=== PATIENT | female | born 1940 | race Two or more races ===

== ENCOUNTER → 2016-11-18 | Outpatient (CLI) | payer MEDICARE, MEDICAID ==
[~2016-11-18] MED LIST: AMLO10TA2 PO; ASPI-231 PO; ATOR20TA50 PO; CARV6.2551 PO; FLUT50SP13; GLIP-116 PO; INSUINJ32 SC; LOSA100T27 PO; METF-312 PO; NITR0.2D12 TD; NITR0.4S29 SL; SITA100T7 PO; [UNRECOGNIZED DRUG - CODE] PO
[2016-11-18 08:12] LABS: Basophils # (auto) 0 uL; Basophils % (auto) 0.4 % (0.0-2.0); Eosinophils # (auto) 0.4 uL; Eosinophils % (auto) 6.6 % (0.0-7.0); Hematocrit 38.3 % (36.0-46.0); Hemoglobin 12.2 g/dL (12.2-16.2); Lymphocytes # (auto) 1.6 uL; Lymphocytes % (auto) 24.6 % (10.0-50.0); Mean Corpuscular Hemoglobin 27.5 pg (28.0-32.0); Mean Corpuscular Hgb Conc. 31.9 g/dL (32.0-36.0); Mean Corpuscular Volume 86.2 fL (80.0-100.0); Mean Platelet Volume 8.1 fL (7.4-10.4); Monocytes # (auto) 0.3 uL; Monocytes % (auto) 4.8 % (0.0-12.0); Neutrophils # (auto) 4.1 uL; Neutrophils % (auto) 63.6 % (37.0-80.0); Platelet Count (auto) 253 10^3/uL (140-450); Red Cell Distribution Width 14.1 % (11.6-16.0); White Blood Cell 6.5 10^3/uL (4.4-10.8)
[2016-11-18 08:23] LABS: Urine Bilirubin Negative (Negative); Urine Blood Negative /uL (Negative); Urine Color Yellow (Yellow); Urine Glucose Normal (Normal); Urine Ketone Negative (Negative); Urine Nitrite Negative (Negative); Urine RBC 1 /hpf (0 - 4); Urine Squamous Epithelial Cell FEW /hpf (<5); Urine Urobilinogen Normal (Negative); Urine pH 5.5 (5.0-8.0)
[2016-11-18 08:41] LABS: Albumin 3.5 g/dL (3.4-5.0); BUN/Creatinine Ratio 17.1; Bilirubin, Total 0.5 mg/dL (0.2-1.0); Calcium 8.7 mg/dL (8.5-10.1); Potassium 4.6 mmol/L (3.5-5.1)
== END | disposition home or self-care (01) ==
LOC: LAB 07:37
PROVIDERS: ATTEND Internal Medicine
DX: Z00.00 Encounter for general adult medical examination without abnormal findings (principal); I10 Essential (primary) hypertension; E55.9 Vitamin D deficiency, unspecified; E11.9 Type 2 diabetes mellitus without complications
CPT/HCPCS: 36415; 80053; 80061; 81001; 82043; 82306; 83036; 85025

== ENCOUNTER → 2017-05-22 | Outpatient (CLI) | payer MEDICARE, MEDICAID ==
[~2017-05-22] MED LIST changes: -METF-312 PO; +METF-370 PO
== END | disposition home or self-care (01) ==
LOC: LAB 16:16
PROVIDERS: ATTEND Internal Medicine
DX: R10.9 Unspecified abdominal pain (principal)
CPT/HCPCS: 36415; 82565; 84520

== ENCOUNTER → 2017-05-28 | Outpatient (CLI) | payer MEDICARE, MEDICAID | END | disposition home or self-care (01) | LOC: LAB 09:44 | PROVIDERS: ATTEND Internal Medicine | DX: R10.9 Unspecified abdominal pain (principal) | CPT/HCPCS: 82270 ==

== ENCOUNTER 2017-09-21 05:54 | Emergency (ER) | payer MEDICARE, MEDICAID ==
[~2017-09-21] VITALS: Ht 144.8 cm; Wt 72.1 kg
[2017-09-21 06:51] LABS: Basophils # (auto) 0.1 uL; Basophils % (auto) 0.9 % (0.0-2.0); Eosinophils # (auto) 0.4 uL; Eosinophils % (auto) 5.9 % (0.0-7.0); Hemoglobin 13.6 g/dL (12.2-16.2); Lymphocytes # (auto) 1.4 uL; Lymphocytes % (auto) 18.9 % (10.0-50.0); Mean Corpuscular Hemoglobin 28.9 pg (28.0-32.0); Mean Corpuscular Hgb Conc. 33.3 g/dL (32.0-36.0); Mean Corpuscular Volume 86.8 fL (80.0-100.0); Mean Platelet Volume 7.8 fL (6.9-10.8); Monocytes # (auto) 0.5 uL; Monocytes % (auto) 6.4 % (0.0-12.0); Neutrophils # (auto) 4.9 uL; Neutrophils % (auto) 67.9 % (37.0-80.0); Platelet Count (auto) 227 10^3/uL (140-450); Red Cell Distribution Width 14.3 % (11.8-14.3); White Blood Cell 7.2 10^3/uL (4.4-10.8)
[2017-09-21] MEDS ORDERED: SODIUM CHLORIDE 0.9% 1,000 ML IV ONE ×2 (07:02)
[2017-09-21 07:09] LABS: Albumin 3.6 g/dL (3.4-5.0); Anion Gap 6 (5-15); Aspartate Aminotransferase 10 U/L (15-37); BUN/Creatinine Ratio 19.8; Blood Urea Nitrogen 16 mg/dL (7-18); Calcium 8.7 mg/dL (8.5-10.1); Carbon Dioxide 25 mmol/L (21-32); Chloride 108 mmol/L (98-107); GFR African American 88 mL/min; GFR Non-African American 73 mL/min; Glucose 207 mg/dL (74-106); Potassium 4.2 mmol/L (3.5-5.1); Sodium 139 mmol/L (136-145)
[2017-09-21 07:14] LABS: Alkaline Phosphatase 85 U/L (45-117); Bilirubin, Total 0.5 mg/dL (0.2-1.0); Total Protein 7.3 g/dL (6.4-8.2)
[2017-09-21 07:47] LABS: INR 0.94 (0.9-1.15); Partial Thromboplastin Time 25.1 sec (22.64-33.71); Prothrombin Time 10.2 sec (9.37-12.3)
[2017-09-21 08:17] VITALS: BP 176/65
[2017-09-21] MEDS ORDERED: HYDROcodone-ACET 5/325MG TAB PO ONE (08:30)
[2017-09-21 08:48] LABS: Urine Bilirubin Negative (Negative); Urine Blood TRACE /uL (Negative); Urine Color Yellow (Yellow); Urine Glucose Normal (Normal); Urine Ketone Negative (Negative); Urine Mucus FEW (None Seen); Urine Nitrite Negative (Negative); Urine RBC 1 /hpf (0 - 4); Urine Squamous Epithelial Cell MOD /hpf (<5); Urine Urobilinogen Normal (Negative); Urine pH 5.5 (5.0-8.0)
== END 2017-09-21 08:48 | disposition home or self-care (01) ==
LOC: ER 05:56
DX: E11.65 Type 2 diabetes mellitus with hyperglycemia (principal); K80.20 Calculus of gallbladder without cholecystitis without obstruction; N20.0 Calculus of kidney; I25.2 Old myocardial infarction; Z95.1 Presence of aortocoronary bypass graft; I25.810 Atherosclerosis of coronary artery bypass graft(s) without angina pectoris; E78.5 Hyperlipidemia, unspecified; I10 Essential (primary) hypertension; F17.210 Nicotine dependence, cigarettes, uncomplicated; Z86.73 Personal history of transient ischemic attack (TIA), and cerebral infarction without residual deficits; Z90.49 Acquired absence of other specified parts of digestive tract; Z90.710 Acquired absence of both cervix and uterus; Z88.8 Allergy status to other drugs, medicaments and biological substances; Z88.6 Allergy status to analgesic agent
CPT/HCPCS: 36415; 71020; 74176; 80053; 81001; 82962; 84484; 85025; 85610; 85730; 93005

== ENCOUNTER 2017-12-01 08:25 | Inpatient (IN) | payer MEDICARE, MEDICAID ==
[~2017-12-01] VITALS: Ht 144.8 cm; Wt 71.0 kg
[2017-12-01] MEDS ORDERED: ALBUTEROL SULF 2.5 MG/0.5ML(0.5%) NEB SOLN NEB ONE ×2 (09:30→12:00)
[2017-12-01] MEDS ORDERED: PIPERACILLIN-TAZOB 3.375GM 50 ML IV ONE (09:30)
[2017-12-01] MEDS ORDERED: IPRATROPIUM BROM 0.5 MG/2.5ML INH SOL NEB ONE ×2 (09:30→12:00)
[2017-12-01 09:45] LABS: Basophils # (auto) 0.2 uL; Basophils % (auto) 1.3 % (0.0-2.0); Eosinophils # (auto) 0.1 uL; Eosinophils % (auto) 0.9 % (0.0-7.0); Hematocrit 41.4 % (36.0-46.0); Hemoglobin 13.7 g/dL (12.2-16.2); Lymphocytes # (auto) 1.1 uL; Lymphocytes % (auto) 8.2 % (10.0-50.0); Mean Corpuscular Hemoglobin 28.5 pg (28.0-32.0); Mean Corpuscular Hgb Conc. 33.1 g/dL (32.0-36.0); Monocytes # (auto) 0.6 uL; Monocytes % (auto) 4.4 % (0.0-12.0); Neutrophils # (auto) 11.1 uL; Neutrophils % (auto) 85.2 % (37.0-80.0); Platelet Count (auto) 231 10^3/uL (140-450); Red Blood Cells 4.81 10^6/uL (4.0-5.20); Red Cell Distribution Width 14.4 % (11.8-14.3); White Blood Cell 13.1 10^3/uL (4.4-10.8)
[2017-12-01 10:01] LABS: Alanine Aminotransferase 17 U/L (13-56); Albumin 3.7 g/dL (3.4-5.0); Alkaline Phosphatase 101 U/L (45-117); Anion Gap 9 (5-15); Aspartate Aminotransferase 8 U/L (15-37); BUN/Creatinine Ratio 14.3; Bilirubin, Total 0.6 mg/dL (0.2-1.0); Blood Urea Nitrogen 13 mg/dL (7-18); Calcium 8.8 mg/dL (8.5-10.1); Carbon Dioxide 24 mmol/L (21-32); Chloride 105 mmol/L (98-107); GFR African American 77 mL/min; GFR Non-African American 64 mL/min; Glucose 286 mg/dL (74-106); Potassium 4.1 mmol/L (3.5-5.1); Sodium 138 mmol/L (136-145); Total Protein 7.7 g/dL (6.4-8.2)
[2017-12-01 10:11] LABS: INR 0.92 (0.9-1.15); Partial Thromboplastin Time 24.6 sec (22.64-33.71)
[2017-12-01] MEDS ORDERED: AZITHROMYCIN 500MG/ 250ML 250 ML IV ONE (10:45)
[2017-12-01] MEDS ORDERED: DEXTROSE (50%) 50ML SYRG IV PRN (12:00)
[2017-12-01] MEDS ORDERED: TEMAZEPAM 15 MG CAP PO PRN (12:15)
[2017-12-01] MEDS ORDERED: NITROGLYCERIN 0.4 MG SL TAB SL PRN (12:15)
[2017-12-01] MEDS ORDERED: ONDANSETRON HCL 4 MG/2 ML VIAL IV PRN (12:15)
[2017-12-01] MEDS ORDERED: MORPHINE SULFATE 4 MG/ML SYR/VIAL IV PRN ×2 (12:15)
[2017-12-01] MEDS ORDERED: DOCUSATE SOD 100 MG CAP PO PRN (12:15)
[2017-12-01] MEDS ORDERED: cefTRIAXone 1GM/10ml IVPUSH 10 ML IV ONE (12:15)
[2017-12-01] MEDS: SODIUM CHLOR 0.9% PF (SALINE LOCK) 10ML VIAL IV SCH ×2 (14:02→22:00)
[2017-12-01] MEDS: ALBUTEROL SULF 2.5 MG/0.5ML(0.5%) NEB SOLN NEB SCH ×3 (14:22→22:31)
[2017-12-01] MEDS: IPRATROPIUM BROM 0.5 MG/2.5ML INH SOL NEB SCH ×3 (14:22→22:31)
[2017-12-01] MEDS ORDERED: CARVEDILOL 12.5 MG TAB PO ONE (16:00)
[2017-12-01] MEDS ORDERED: LOSARTAN POTASSIUM 50 MG TAB PO ONE (16:00)
[2017-12-01] MEDS ORDERED: amLODIPine BESYLATE 5 MG TAB PO ONE (16:00)
[2017-12-01] MEDS: ACCU-CHEK COMFORT CURVE STRIP VI SCH ×2 (17:00→22:19)
[2017-12-01 17:25] VITALS: BP 139/49
[2017-12-01] MEDS: InsuLIN REG 1unit/0.01ml Soln (100units/ml) SC SCH ×2 (18:10→22:11)
[2017-12-01] MEDS: glipiZIDE 5 MG TAB PO SCH (18:10)
[2017-12-01 18:26] VITALS: BP 139/49
[2017-12-01] MEDS ORDERED: CLOP75TA28 PO (18:55)
[2017-12-01] MEDS ORDERED: ALBU1AER4 IN (18:55)
[2017-12-01] MEDS: ATORVASTATIN 20 MG TAB PO SCH (22:11)
[2017-12-01] MEDS: FAMOTIDINE 20 MG TAB PO SCH (22:12)
[2017-12-01] MEDS: carBAMazepine 200 MG TAB PO SCH (22:12)
[2017-12-01] MEDS: CARVEDILOL 12.5 MG TAB PO SCH (22:12)
[2017-12-01 22:34] VITALS: BP_SYST 136; BP_DIAS 62; BP_DIAS 92
[2017-12-02] MEDS: ALBUTEROL SULF 2.5 MG/0.5ML(0.5%) NEB SOLN NEB SCH ×6 (02:52→22:23)
[2017-12-02] MEDS: IPRATROPIUM BROM 0.5 MG/2.5ML INH SOL NEB SCH ×6 (02:52→22:23)
[2017-12-02 05:07] LABS: Urine WBC None Seen /hpf (0 - 5)
[2017-12-02 05:24] LABS: Urine Bacteria NONE SEEN /hpf (None Seen); Urine Blood Negative /uL (Negative); Urine Specific Gravity 1.006 (1.001-1.035)
[2017-12-02 05:57] VITALS: BP 121/62
[2017-12-02] MEDS: SODIUM CHLOR 0.9% PF (SALINE LOCK) 10ML VIAL IV SCH ×3 (06:00→22:00)
[2017-12-02] MEDS: glipiZIDE 5 MG TAB PO SCH ×2 (06:48→18:16)
[2017-12-02] MEDS: ACCU-CHEK COMFORT CURVE STRIP VI SCH ×4 (06:48→22:00)
[2017-12-02] MEDS: InsuLIN REG 1unit/0.01ml Soln (100units/ml) SC SCH ×4 (06:48→22:00)
[2017-12-02] MEDS: INSULIN LANTUS (GLARGINE) 1 /0.01ml (100units/ml) SC SCH (06:48)
[2017-12-02 07:29] LABS: Basophils # (auto) 0 uL; Basophils % (auto) 0.7 % (0.0-2.0); Eosinophils # (auto) 0.4 uL; Eosinophils % (auto) 5.5 % (0.0-7.0); Hematocrit 36.9 % (36.0-46.0); Hemoglobin 12.4 g/dL (12.2-16.2); Lymphocytes # (auto) 1.3 uL; Lymphocytes % (auto) 20.1 % (10.0-50.0); Mean Corpuscular Hemoglobin 28.8 pg (28.0-32.0); Mean Corpuscular Hgb Conc. 33.5 g/dL (32.0-36.0); Mean Corpuscular Volume 85.8 fL (80.0-100.0); Monocytes # (auto) 0.5 uL; Monocytes % (auto) 7.3 % (0.0-12.0); Neutrophils # (auto) 4.3 uL; Neutrophils % (auto) 66.4 % (37.0-80.0); Nucleated Red Blood Cells % 0.2 %; Platelet Count (auto) 194 10^3/uL (140-450); Red Cell Distribution Width 14.3 % (11.8-14.3); White Blood Cell 6.4 10^3/uL (4.4-10.8)
[2017-12-02 07:46] LABS: Albumin 3.2 g/dL (3.4-5.0); BUN/Creatinine Ratio 15.8; Calcium 8.1 mg/dL (8.5-10.1); Potassium 3.7 mmol/L (3.5-5.1)
[2017-12-02 07:49] LABS: Bilirubin, Total 0.5 mg/dL (0.2-1.0); Total Protein 6.4 g/dL (6.4-8.2)
[2017-12-02] MEDS: cefTRIAXone 1GM/10ml IVPUSH 10 ML IV SCH (08:26)
[2017-12-02 08:34] VITALS: BP 140/57
[2017-12-02] MEDS: FAMOTIDINE 20 MG TAB PO SCH ×2 (09:20→23:31)
[2017-12-02] MEDS: CLOPIDOGREL BISULFATE 75 MG TAB PO SCH (09:21)
[2017-12-02] MEDS: amLODIPine BESYLATE 5 MG TAB PO SCH (09:21)
[2017-12-02] MEDS: MULTIPLE VITAMIN TAB PO SCH (09:21)
[2017-12-02] MEDS: LOSARTAN POTASSIUM 50 MG TAB PO SCH (09:22)
[2017-12-02] MEDS: CARVEDILOL 12.5 MG TAB PO SCH ×2 (09:23→23:33)
[2017-12-02] MEDS ORDERED: AZITHROMYCIN 500MG/ 250ML 250 ML IV SCH (10:00)
[2017-12-02] MEDS ORDERED: JANUVIA 100MG PO SCH (10:00)
[2017-12-02 13:00] VITALS: BP 131/53
[2017-12-02 16:47] VITALS: BP 144/58
[2017-12-02 22:12] VITALS: BP 142/73
[2017-12-02] MEDS: ATORVASTATIN 20 MG TAB PO SCH (23:31)
[2017-12-02] MEDS: carBAMazepine 200 MG TAB PO SCH (23:31)
[2017-12-03] MEDS: IPRATROPIUM BROM 0.5 MG/2.5ML INH SOL NEB SCH ×3 (02:34→09:48)
[2017-12-03] MEDS: ALBUTEROL SULF 2.5 MG/0.5ML(0.5%) NEB SOLN NEB SCH ×3 (02:34→09:48)
[2017-12-03 04:59] VITALS: BP 134/71
[2017-12-03] MEDS: SODIUM CHLOR 0.9% PF (SALINE LOCK) 10ML VIAL IV SCH (06:00)
[2017-12-03] MEDS: glipiZIDE 5 MG TAB PO SCH (06:57)
[2017-12-03] MEDS: INSULIN LANTUS (GLARGINE) 1 /0.01ml (100units/ml) SC SCH (06:58)
[2017-12-03] MEDS: InsuLIN REG 1unit/0.01ml Soln (100units/ml) SC SCH ×2 (06:58→11:30)
[2017-12-03] MEDS: ACCU-CHEK COMFORT CURVE STRIP VI SCH ×2 (06:58→13:24)
[2017-12-03 08:00] VITALS: BP 161/65
[2017-12-03] MEDS: cefTRIAXone 1GM/10ml IVPUSH 10 ML IV SCH (09:56)
[2017-12-03] MEDS ORDERED: HCTZ25T PO (10:30)
[2017-12-03] MEDS ORDERED: POTA10TA51 PO (10:30)
[2017-12-03] MEDS ORDERED: AMOX-263 PO (10:46)
[2017-12-03] MEDS: FAMOTIDINE 20 MG TAB PO SCH (10:54)
[2017-12-03] MEDS: CLOPIDOGREL BISULFATE 75 MG TAB PO SCH (10:54)
[2017-12-03] MEDS: MULTIPLE VITAMIN TAB PO SCH (10:55)
[2017-12-03] MEDS: amLODIPine BESYLATE 5 MG TAB PO SCH (10:55)
[2017-12-03] MEDS: CARVEDILOL 12.5 MG TAB PO SCH (10:56)
[2017-12-03] MEDS: LOSARTAN POTASSIUM 50 MG TAB PO SCH (10:56)
[2017-12-03 11:55] VITALS: BP 161/65
== END 2017-12-03 12:30 | disposition home or self-care (01) | DRG 189 ==
LOC: ER 08:25 → OVERFLOW 08:26 → EAST 17:20
PROVIDERS: ADMIT Internal Medicine; ATTEND Internal Medicine
DX: J96.00 Acute respiratory failure, unspecified whether with hypoxia or hypercapnia (principal); E10.21 Type 1 diabetes mellitus with diabetic nephropathy; J44.0 Chronic obstructive pulmonary disease with (acute) lower respiratory infection; J45.901 Unspecified asthma with (acute) exacerbation; J98.11 Atelectasis; E10.22 Type 1 diabetes mellitus with diabetic chronic kidney disease; N18.2 Chronic kidney disease, stage 2 (mild); J20.9 Acute bronchitis, unspecified; E66.9 Obesity, unspecified; I12.9 Hypertensive chronic kidney disease with stage 1 through stage 4 chronic kidney disease, or unspecified chronic kidney disease; E78.5 Hyperlipidemia, unspecified; F17.210 Nicotine dependence, cigarettes, uncomplicated; I25.10 Atherosclerotic heart disease of native coronary artery without angina pectoris; I25.2 Old myocardial infarction; Z82.49 Family history of ischemic heart disease and other diseases of the circulatory system; Z83.3 Family history of diabetes mellitus; Z85.43 Personal history of malignant neoplasm of ovary; Z86.73 Personal history of transient ischemic attack (TIA), and cerebral infarction without residual deficits; Z90.710 Acquired absence of both cervix and uterus; Z95.1 Presence of aortocoronary bypass graft; Z90.49 Acquired absence of other specified parts of digestive tract; Z90.89 Acquired absence of other organs; Z88.5 Allergy status to narcotic agent; Z88.8 Allergy status to other drugs, medicaments and biological substances; Z68.33 Body mass index [BMI] 33.0-33.9, adult
CPT/HCPCS: 36415; 71045; 71046; 80053; 81001; 82962; 83036; 83605; 83880; 84484; 85025; 85610; 85730; 87040; 87070; 87086; 87205; 93306; 94640; 96365; 96367; 96375; J1815; J2543

== ENCOUNTER → 2018-01-12 | Outpatient (CLI) | payer MEDICARE, MEDICAID ==
[~2018-01-12] VITALS: Ht 149.9 cm; Wt 73.5 kg
[~2018-01-12] MED LIST changes: +ADENOSINE 62 MG in GIVE UN-DILUTED 0 ML IV ONE; +ALBU1AER4 IN; +AMOX-263 PO; +CLOP75TA28 PO; +HCTZ25T PO; -NITR0.2D12 TD; +POTA10TA51 PO
[2018-01-12 10:51] VITALS: BP 175/61
== END | disposition home or self-care (01) ==
LOC: XY 09:03
PROVIDERS: ATTEND Internal Medicine
DX: I25.10 Atherosclerotic heart disease of native coronary artery without angina pectoris (principal); E10.22 Type 1 diabetes mellitus with diabetic chronic kidney disease; I12.9 Hypertensive chronic kidney disease with stage 1 through stage 4 chronic kidney disease, or unspecified chronic kidney disease; N18.2 Chronic kidney disease, stage 2 (mild); Z85.43 Personal history of malignant neoplasm of ovary
CPT/HCPCS: 78452; 93017; A9500; J0153

== ENCOUNTER 2018-06-25 05:03 | Emergency (ER) | payer MEDICARE, MEDICAID ==
[~2018-06-25] VITALS: Ht 144.8 cm; Wt 63.5 kg
[~2018-06-25 05:03] MED LIST changes: -ADENOSINE 62 MG in GIVE UN-DILUTED 0 ML IV ONE; +AMLO10TA12 PO; -AMLO10TA2 PO; +LOSA-49 PO; -LOSA100T27 PO
[2018-06-25 07:15] LABS: Basophils # (auto) 0.1 uL; Basophils % (auto) 0.7 % (0.0-2.0); Eosinophils # (auto) 0.4 uL; Eosinophils % (auto) 5.2 % (0.0-7.0); Hemoglobin 13.7 g/dL (12.2-16.2); Lymphocytes # (auto) 1.4 uL; Lymphocytes % (auto) 16.2 % (10.0-50.0); Mean Corpuscular Hemoglobin 30.3 pg (28.0-32.0); Mean Corpuscular Hgb Conc. 34.2 g/dL (32.0-36.0); Mean Corpuscular Volume 88.8 fL (80.0-100.0); Monocytes # (auto) 0.5 uL; Monocytes % (auto) 5.8 % (0.0-12.0); Neutrophils # (auto) 6.1 uL; Neutrophils % (auto) 72.1 % (37.0-80.0); Platelet Count (auto) 218 10^3/uL (140-450); Red Cell Distribution Width 13.9 % (11.8-14.3); White Blood Cell 8.5 10^3/uL (4.4-10.8)
[2018-06-25 07:31] LABS: Alanine Aminotransferase 17 U/L (13-56); Albumin 3.8 g/dL (3.4-5.0); Alkaline Phosphatase 79 U/L (45-117); Anion Gap 8 (5-15); Aspartate Aminotransferase 9 U/L (15-37); Bilirubin, Total 0.7 mg/dL (0.2-1.0); Blood Urea Nitrogen 23 mg/dL (7-18); Calcium 8.7 mg/dL (8.5-10.1); Carbon Dioxide 26 mmol/L (21-32); Chloride 104 mmol/L (98-107); GFR African American 59 mL/min; GFR Non-African American 49 mL/min; Glucose 297 mg/dL (74-106); Magnesium 2.3 mg/dL (1.6-2.6); Potassium 4.3 mmol/L (3.5-5.1); Sodium 138 mmol/L (136-145); Total Protein 7.5 g/dL (6.4-8.2)
[2018-06-25] MEDS ORDERED: MORPHINE SULFATE 4 MG/ML SYR/VIAL IV ONE (08:00)
[2018-06-25] MEDS ORDERED: ONDANSETRON HCL 4 MG/2 ML VIAL IV ONE (08:00)
[2018-06-25 10:24] VITALS: BP 152/57
== END 2018-06-25 10:29 | disposition home or self-care (01) ==
LOC: ER 05:09
DX: S29.011A Strain of muscle and tendon of front wall of thorax, initial encounter (principal); I25.709 Atherosclerosis of coronary artery bypass graft(s), unspecified, with unspecified angina pectoris; J44.9 Chronic obstructive pulmonary disease, unspecified; E11.9 Type 2 diabetes mellitus without complications; E78.5 Hyperlipidemia, unspecified; I11.0 Hypertensive heart disease with heart failure; I50.9 Heart failure, unspecified; Z88.6 Allergy status to analgesic agent; Z79.899 Other long term (current) drug therapy; Z79.82 Long term (current) use of aspirin; Z79.01 Long term (current) use of anticoagulants; Z79.4 Long term (current) use of insulin; Z86.73 Personal history of transient ischemic attack (TIA), and cerebral infarction without residual deficits; Z90.49 Acquired absence of other specified parts of digestive tract; Z95.1 Presence of aortocoronary bypass graft; Z90.710 Acquired absence of both cervix and uterus; Z98.61 Coronary angioplasty status; X50.0XXA Overexertion from strenuous movement or load, initial encounter; Y93.89 Activity, other specified; Y99.8 Other external cause status; Y92.89 Other specified places as the place of occurrence of the external cause
CPT/HCPCS: 36415; 71250; 80053; 83735; 83880; 84484; 85025; 96374; 96375; 99285; J2270; J2405; 93005

== ENCOUNTER → 2018-09-01 | Outpatient (CLI) | payer MEDICARE, MEDICAID ==
[2018-09-01 08:43] LABS: Basophils # (auto) 0.1 uL; Basophils % (auto) 0.9 % (0.0-2.0); Eosinophils # (auto) 0.4 uL; Eosinophils % (auto) 4.9 % (0.0-7.0); Hematocrit 40.8 % (36.0-46.0); Hemoglobin 13.6 g/dL (12.2-16.2); Lymphocytes # (auto) 1.9 uL; Lymphocytes % (auto) 24.2 % (10.0-50.0); Mean Corpuscular Hemoglobin 29.4 pg (28.0-32.0); Mean Corpuscular Hgb Conc. 33.3 g/dL (32.0-36.0); Mean Corpuscular Volume 88.3 fL (80.0-100.0); Monocytes # (auto) 0.4 uL; Monocytes % (auto) 5.6 % (0.0-12.0); Neutrophils # (auto) 4.9 uL; Neutrophils % (auto) 64.4 % (37.0-80.0); Platelet Count (auto) 228 10^3/uL (140-450); Red Blood Cells 4.62 10^6/uL (4.0-5.20); Red Cell Distribution Width 13.5 % (11.8-14.3); White Blood Cell 7.7 10^3/uL (4.4-10.8)
[2018-09-01 11:13] LABS: Potassium 4.2 mmol/L (3.5-5.1)
[2018-09-01 11:24] LABS: Albumin 3.8 g/dL (3.4-5.0); BUN/Creatinine Ratio 20.8; Bilirubin, Total 0.5 mg/dL (0.2-1.0); Calcium 9.2 mg/dL (8.5-10.1); Total Protein 7.3 g/dL (6.4-8.2)
== END | disposition home or self-care (01) ==
LOC: LAB 08:25
PROVIDERS: ATTEND Physician Assistant
DX: I11.0 Hypertensive heart disease with heart failure (principal); I50.9 Heart failure, unspecified; E11.29 Type 2 diabetes mellitus with other diabetic kidney complication; I25.10 Atherosclerotic heart disease of native coronary artery without angina pectoris; I25.119 Atherosclerotic heart disease of native coronary artery with unspecified angina pectoris; E78.5 Hyperlipidemia, unspecified; J44.9 Chronic obstructive pulmonary disease, unspecified
CPT/HCPCS: 36415; 80053; 80061; 82274; 85025

== ENCOUNTER → 2019-06-24 | Outpatient (CLI) | payer MEDICARE, MEDICAID ==
[~2019-06-24] MED LIST changes: -AMLO10TA12 PO; +AMLO10TA13 PO; -GLIP-116 PO; +GLIP10TA9 PO; +LOSA-39 PO; -LOSA-49 PO; +[UNRECOGNIZED DRUG - CODE] PO; -[UNRECOGNIZED DRUG - CODE] PO
[2019-06-24 11:57] LABS: Urine Bacteria NONE SEEN /hpf (None Seen); Urine Blood Negative /uL (Negative); Urine Mucus FEW (None Seen); Urine Specific Gravity 1.016 (1.001-1.035); Urine WBC 49 /hpf (0 - 5); Urine WBC Clumps PRESENT /hpf (None Seen)
== END | disposition home or self-care (01) ==
LOC: LAB 11:25
PROVIDERS: ATTEND Nurse Practitioner Family
DX: N39.0 Urinary tract infection, site not specified (principal)
CPT/HCPCS: 81001; 87086; 87088; 87186

== ENCOUNTER 2019-07-01 11:47 | Inpatient (IN) | payer MEDICARE, MEDICAID ==
[~2019-07-01] VITALS: Ht 144.8 cm; Wt 73.6 kg
[2019-07-01 12:43] LABS: Basophils # (auto) 0.1 uL; Basophils % (auto) 1.2 % (0.0-2.0); Eosinophils # (auto) 1.1 uL; Eosinophils % (auto) 12.4 % (0.0-7.0); Hematocrit 38.5 % (36.0-46.0); Hemoglobin 13.3 g/dL (12.2-16.2); Lymphocytes # (auto) 1.7 uL; Lymphocytes % (auto) 19.8 % (10.0-50.0); Mean Corpuscular Hgb Conc. 34.7 g/dL (32.0-36.0); Mean Corpuscular Volume 86.6 fL (80.0-100.0); Monocytes # (auto) 0.5 uL; Monocytes % (auto) 5.3 % (0.0-12.0); Neutrophils # (auto) 5.3 uL; Neutrophils % (auto) 61.3 % (37.0-80.0); Nucleated Red Blood Cells % 0.1 %; Platelet Count (auto) 217 10^3/uL (140-450); Red Blood Cells 4.44 10^6/uL (4.0-5.20); Red Cell Distribution Width 13.5 % (11.8-14.3); White Blood Cell 8.7 10^3/uL (4.4-10.8)
[2019-07-01] MEDS ORDERED: SODIUM CHLORIDE 0.9% 1,000 ML IV ONE (12:44)
[2019-07-01] MEDS ORDERED: cefTRIAXone 1GM/50ML D5W 50 ML IV ONE (12:45)
[2019-07-01 12:58] LABS: Albumin 3.7 g/dL (3.4-5.0); Calcium 9.2 mg/dL (8.5-10.1); Potassium 4.1 mmol/L (3.5-5.1)
[2019-07-01 13:01] LABS: BUN/Creatinine Ratio 19.3; Bilirubin, Total 0.5 mg/dL (0.2-1.0); Total Protein 7.4 g/dL (6.4-8.2)
[2019-07-01 14:05] LABS: INR 0.94 (0.9-1.15); Partial Thromboplastin Time 24.5 sec (23.64-32.05)
[2019-07-01] MEDS ORDERED: FUROSEMIDE 20 MG/2 ML VIAL IV ONE (16:30)
[2019-07-01] MEDS ORDERED: ONDANSETRON HCL 4 MG/2 ML VIAL IV PRN (16:30)
[2019-07-01] MEDS ORDERED: MORPHINE SULF INJ 2 MG/ML SYRINGE 1ML IV PRN (16:30)
[2019-07-01] MEDS ORDERED: NITROGLYCERIN 0.4 MG SL TAB SL PRN (16:30)
--- NOTE | 2019-07-01 17:45 | NUR ---
Telemetry admit from ER KASSIDY JONES admitted to Telemetry unit after SBAR received. Patient oriented to Summer Lama primary RN, unit, room, bed, and unit policies regarding patient care and visiting hours. Patient placed on bedside oxygen, weighed by bed scale and encouraged to call if they need something. All questions and concerns addressed, patient verbalized understanding. Instructed patient on POC, fall precautions and to call for assistance as needed. Patient verbalized understanding. Fall precautions in place with call light within reach. Will continue to monitor q1hr & PRN. Patient's daughter is at bedside.
--- NOTE | 2019-07-01 18:59 | NUR ---
Telemonitor #[id number] placed on patient Received telemonitor from ISIDRO Andre RN.
[2019-07-01 19:01] LABS: Urine Bacteria NONE SEEN /hpf (None Seen); Urine Blood Negative /uL (Negative); Urine Specific Gravity 1.015 (1.001-1.035); Urine WBC 1 /hpf (0 - 5)
--- NOTE | 2019-07-01 19:01 | NUR ---
Closing note patient resting in bed with even and unlabored respirations, no distress noted. Fall precautions in place with call light within reach. Visitor at bedside.
[2019-07-01] MEDS ORDERED: RANO500T2 PO (19:07)
[2019-07-01] MEDS: ALBUTEROL SULF 2.5 MG/0.5ML(0.5%) NEB SOLN NEB SCH (19:18)
[2019-07-01] MEDS: BUDESONIDE (INHALATION) 0.5 MG/2 ML NEB NEB SCH (19:18)
[2019-07-01] MEDS: IPRATROPIUM BROM 0.5 MG/2.5ML INH SOL NEB SCH (19:18)
--- NOTE | 2019-07-01 19:30 | NUR ---
Care endorsed to CLARIBEL Null.
--- NOTE | 2019-07-01 19:30 | NUR ---
OPENING NOTE REPORT RECEIVED FROM DAY SHIFT RN PATIENT IS A/OX4 RESTING IN BED. NO SOB OR DISTRESS NOTED. PATIENTS DAUGHTER AT BEDSIDE WITH PATIENT. POC DISCUSSED AND ALL QUESTIONS ANSWERED. WILL MONITOR Q1H PRN THROUGHOUT SHIFT. CALL LIGHT WITHIN REACH.
--- NOTE | 2019-07-01 20:30 | NUR ---
SCD'S PLACED ON BILATERAL LEGS PER MD ORDER
[2019-07-01] MEDS: CARVEDILOL 12.5 MG TAB PO SCH (21:59)
[2019-07-01 22:20] VITALS: BP 138/77
[2019-07-01 23:42] VITALS: BP 138/77
[2019-07-02 05:09] VITALS: BP 150/57
[2019-07-02] MEDS: IPRATROPIUM BROM 0.5 MG/2.5ML INH SOL NEB SCH ×3 (05:59→19:38)
[2019-07-02] MEDS: ALBUTEROL SULF 2.5 MG/0.5ML(0.5%) NEB SOLN NEB SCH ×3 (05:59→19:38)
[2019-07-02] MEDS: BUDESONIDE (INHALATION) 0.5 MG/2 ML NEB NEB SCH ×2 (05:59→19:38)
[2019-07-02 06:10] LABS: Basophils # (auto) 0.1 uL; Basophils % (auto) 1.3 % (0.0-2.0); Eosinophils # (auto) 0.9 uL; Eosinophils % (auto) 11.2 % (0.0-7.0); Hematocrit 36.7 % (36.0-46.0); Hemoglobin 12.9 g/dL (12.2-16.2); Lymphocytes # (auto) 1.6 uL; Lymphocytes % (auto) 19.4 % (10.0-50.0); Mean Corpuscular Hemoglobin 30.4 pg (28.0-32.0); Mean Corpuscular Hgb Conc. 35.1 g/dL (32.0-36.0); Mean Corpuscular Volume 86.5 fL (80.0-100.0); Monocytes # (auto) 0.5 uL; Neutrophils # (auto) 5.1 uL; Neutrophils % (auto) 62.1 % (37.0-80.0); Nucleated Red Blood Cells % 0.1 %; Platelet Count (auto) 217 10^3/uL (140-450); Red Blood Cells 4.24 10^6/uL (4.0-5.20); Red Cell Distribution Width 13.7 % (11.8-14.3); White Blood Cell 8.2 10^3/uL (4.4-10.8)
[2019-07-02 06:39] LABS: BUN/Creatinine Ratio 18.6; Calcium 8.4 mg/dL (8.5-10.1)
--- NOTE | 2019-07-02 06:56 | NUR ---
CLOSING PATIENT SLEEPING AT THIS TIME. VISIBLE RISE AND FALL OF CHEST. NO S/S OF SOB OR DISTRESS NOTED. CALL LIGHT WITHIN REACH. WILL ENDORSE CARE TO DAYSHIFT RN
--- NOTE | 2019-07-02 08:00 | NUR ---
RECEIVED REPORT FROM ZINA SANFORD.
--- NOTE | 2019-07-02 08:15 | NUR ---
Opening Shift Note Assumed care of patient, awake and alert. No S/S of distress/SOB or pain. Instructed on POC and to call for assist PRN, will continue to monitor. Bed locked in the lowest position. Bed rails up x2. Call light in reach. SCDs in place bilaterally.
[2019-07-02 09:00] VITALS: BP 137/73
--- NOTE | 2019-07-02 10:00 | NUR ---
FAMILY AT THE BEDSIDE AT THE BEDSIDE PROVIDING BED BATH TO PATIENT. ALL QUESTIONS AND CONCERNS ADDRESSED AT THIS TIME.
[2019-07-02] MEDS: FAMOTIDINE 20 MG TAB PO SCH (10:28)
[2019-07-02] MEDS: CLOPIDOGREL BISULFATE 75 MG TAB PO SCH (10:28)
[2019-07-02] MEDS: CARVEDILOL 12.5 MG TAB PO SCH ×2 (10:29→22:09)
[2019-07-02] MEDS: ASPirin-EC 81 mg tab PO SCH (10:29)
[2019-07-02] MEDS: FUROSEMIDE 20 MG/2 ML VIAL IV SCH (10:30)
[2019-07-02] MEDS: ATORVASTATIN 20 MG TAB PO SCH (10:30)
[2019-07-02 12:30] VITALS: BP 156/71
[2019-07-02 17:19] VITALS: BP 135/60
--- NOTE | 2019-07-02 17:52 | NUR ---
CHLORINE CELL TENDER AWARE CHLORINE CELL TENDER FLORES CLIFTON MADE AWARE THAT PATIENT HAS HISTORY OF DM. NEW ORDER RECEIVED. ORDER READ BACK AND VERIFIED.
[2019-07-02] MEDS ORDERED: InsuLIN REG 1unit/0.01ml Soln (100units/ml) SC ONE (18:00)
[2019-07-02] MEDS ORDERED: DEXTROSE (50%) 50ML SYRG IV PRN (18:00)
[2019-07-02] MEDS ORDERED: ACCU-CHEK COMFORT CURVE STRIP VI ONE (18:00)
--- NOTE | 2019-07-02 19:00 | NUR ---
Closing Note Patient is awake and alert. No S/S of distress/SOB or pain. Bed locked in the lowest position. Bed rails up x2. Call light in reach. Sitter at the bedside for safety. Endorsed care to night nurse.
[2019-07-02 20:00] VITALS: BP 129/72
[2019-07-02] MEDS: InsuLIN REG 1unit/0.01ml Soln (100units/ml) SC SCH (22:00)
[2019-07-02] MEDS: ACCU-CHEK COMFORT CURVE STRIP VI SCH (22:00)
[2019-07-02 23:25] VITALS: BP 140/68
[2019-07-03] MEDS: InsuLIN REG 1unit/0.01ml Soln (100units/ml) SC SCH ×4 (05:17→21:37)
[2019-07-03] MEDS: ACCU-CHEK COMFORT CURVE STRIP VI SCH ×4 (05:18→21:37)
[2019-07-03 05:34] VITALS: BP 125/72
[2019-07-03] MEDS: BUDESONIDE (INHALATION) 0.5 MG/2 ML NEB NEB SCH ×2 (06:01→18:58)
[2019-07-03] MEDS: ALBUTEROL SULF 2.5 MG/0.5ML(0.5%) NEB SOLN NEB SCH ×3 (06:01→18:58)
[2019-07-03] MEDS: IPRATROPIUM BROM 0.5 MG/2.5ML INH SOL NEB SCH ×3 (06:01→18:58)
--- NOTE | 2019-07-03 07:30 | NUR ---
Opening Shift Note RECEIVED REPORT FROM NOC RN. Assumed care of patient, awake and alert. PATIENT ON OXYGEN AT 3 LPM VIA NASAL CANNULA WITH no S/S of distress/SOB or pain. BED IN LOWEST, LOCKED POSITION WITH SIDERAILS UP x2 AND CALL LIGHT WITHIN REACH. Instructed on POC and to call for assist PRN, will continue to monitor for changes Q1hr and PRN.
[2019-07-03 07:46] LABS: Basophils # (auto) 0.1 uL; Basophils % (auto) 1.5 % (0.0-2.0); Eosinophils # (auto) 0.7 uL; Eosinophils % (auto) 10.3 % (0.0-7.0); Hematocrit 35.4 % (36.0-46.0); Hemoglobin 12.7 g/dL (12.2-16.2); Lymphocytes # (auto) 1.9 uL; Lymphocytes % (auto) 26.2 % (10.0-50.0); Mean Corpuscular Hemoglobin 30.6 pg (28.0-32.0); Mean Corpuscular Hgb Conc. 35.7 g/dL (32.0-36.0); Mean Corpuscular Volume 85.7 fL (80.0-100.0); Monocytes # (auto) 0.4 uL; Monocytes % (auto) 5.7 % (0.0-12.0); Neutrophils # (auto) 4.1 uL; Neutrophils % (auto) 56.3 % (37.0-80.0); Nucleated Red Blood Cells % 0.1 %; Platelet Count (auto) 206 10^3/uL (140-450); Red Blood Cells 4.14 10^6/uL (4.0-5.20); Red Cell Distribution Width 13.5 % (11.8-14.3); White Blood Cell 7.2 10^3/uL (4.4-10.8)
[2019-07-03 07:51] LABS: Anion Gap 8 (5-15); BUN/Creatinine Ratio 24.3; Blood Urea Nitrogen 25 mg/dL (7-18); Calcium 8.4 mg/dL (8.5-10.1); Carbon Dioxide 24 mmol/L (21-32); Chloride 106 mmol/L (98-107); GFR African American 67 mL/min; GFR Non-African American 55 mL/min; Glucose 210 mg/dL (74-106); Potassium 3.9 mmol/L (3.5-5.1); Sodium 138 mmol/L (136-145)
[2019-07-03 08:36] VITALS: BP 151/53
[2019-07-03] MEDS: ASPirin-EC 81 mg tab PO SCH (09:47)
[2019-07-03] MEDS: CLOPIDOGREL BISULFATE 75 MG TAB PO SCH (09:47)
[2019-07-03] MEDS: FUROSEMIDE 20 MG/2 ML VIAL IV SCH (09:47)
[2019-07-03] MEDS: CARVEDILOL 12.5 MG TAB PO SCH ×2 (09:48→21:37)
[2019-07-03] MEDS: ATORVASTATIN 20 MG TAB PO SCH (09:48)
[2019-07-03] MEDS: FAMOTIDINE 20 MG TAB PO SCH (09:48)
[2019-07-03 12:30] VITALS: BP 131/61
[2019-07-03 17:00] VITALS: BP 143/61
--- NOTE | 2019-07-03 20:00 | NUR ---
Opening Shift Note Received report from dayshift RN. Assumed care of patient, awake and alert. No S/S of distress/SOB or pain. Instructed on POC and to call for assist PRN, will continue to monitor for changes Q1hr and PRN. Bed lowered, call light within reach. Patient informed regarding procedure in the morning and patient being placed NPO. Patient aware and verbalized understanding.
[2019-07-03 22:12] VITALS: BP 151/75
[2019-07-04 05:32] VITALS: BP 149/70
[2019-07-04] MEDS: BUDESONIDE (INHALATION) 0.5 MG/2 ML NEB NEB SCH ×3 (05:55→22:17)
[2019-07-04] MEDS: IPRATROPIUM BROM 0.5 MG/2.5ML INH SOL NEB SCH ×5 (05:55→22:17)
[2019-07-04] MEDS: ALBUTEROL SULF 2.5 MG/0.5ML(0.5%) NEB SOLN NEB SCH ×5 (05:55→22:17)
[2019-07-04] MEDS: ACCU-CHEK COMFORT CURVE STRIP VI SCH ×4 (06:45→21:57)
[2019-07-04] MEDS: InsuLIN REG 1unit/0.01ml Soln (100units/ml) SC SCH ×4 (06:45→21:57)
[2019-07-04 07:17] LABS: Basophils # (auto) 0.1 uL; Basophils % (auto) 1.1 % (0.0-2.0); Eosinophils # (auto) 0.6 uL; Hematocrit 36.5 % (36.0-46.0); Hemoglobin 12.6 g/dL (12.2-16.2); Lymphocytes # (auto) 1.7 uL; Lymphocytes % (auto) 19.2 % (10.0-50.0); Mean Corpuscular Hemoglobin 30.3 pg (28.0-32.0); Mean Corpuscular Hgb Conc. 34.5 g/dL (32.0-36.0); Mean Corpuscular Volume 87.9 fL (80.0-100.0); Monocytes # (auto) 0.5 uL; Monocytes % (auto) 5.2 % (0.0-12.0); Neutrophils % (auto) 67.5 % (37.0-80.0); Nucleated Red Blood Cells % 0.1 %; Platelet Count (auto) 214 10^3/uL (140-450); Red Blood Cells 4.15 10^6/uL (4.0-5.20); Red Cell Distribution Width 13.5 % (11.8-14.3); White Blood Cell 8.9 10^3/uL (4.4-10.8)
[2019-07-04 07:29] LABS: INR 0.95 (0.9-1.15); Partial Thromboplastin Time 23.8 sec (23.64-32.05)
--- NOTE | 2019-07-04 07:30 | NUR ---
Opening Shift Note Assuming care of patient at this time. Patient is awake and alert. Patient denies pain. Patient shows no signs or symptoms of distress or shortness of breath. Bed is locked and lowered with side rails up x2. Instructed patient on the plan of care for today and to call for assistance as needed. Patient aware of upcoming procedure and NPO status. Call light within reach. Will continue to round hourly and as needed.
[2019-07-04 07:32] LABS: Anion Gap 9 (5-15); BUN/Creatinine Ratio 22.3; Blood Urea Nitrogen 25 mg/dL (7-18); Calcium 8.1 mg/dL (8.5-10.1); Carbon Dioxide 25 mmol/L (21-32); Chloride 103 mmol/L (98-107); GFR African American 61 mL/min; GFR Non-African American 50 mL/min; Glucose 295 mg/dL (74-106); Sodium 137 mmol/L (136-145)
[2019-07-04 08:25] VITALS: BP 146/67
--- NOTE | 2019-07-04 09:15 | NUR ---
Call from Blood Bank Call from blood bank at this time. Patient's blood antibodies were positive, therefore, if patient were to need blood then it would take a "couple of hours," per vtc technician.
--- NOTE | 2019-07-04 09:28 | NUR ---
Call to Garment Manufacturer Call to Aminata Garment Manufacturer RN, at this time. Made aware of patient's positive antibodies. If patient were to need blood in an emergent situation, it would take a "couple of hours," per transportation technician. Aminata verbalized understanding.
[2019-07-04] MEDS: FUROSEMIDE 20 MG/2 ML VIAL IV SCH (10:00)
[2019-07-04] MEDS: FAMOTIDINE 20 MG TAB PO SCH (10:24)
[2019-07-04] MEDS: ATORVASTATIN 20 MG TAB PO SCH (10:24)
[2019-07-04] MEDS: ASPirin-EC 81 mg tab PO SCH (10:24)
[2019-07-04] MEDS: CLOPIDOGREL BISULFATE 75 MG TAB PO SCH (10:25)
[2019-07-04] MEDS: CARVEDILOL 12.5 MG TAB PO SCH ×2 (10:25→21:57)
--- NOTE | 2019-07-04 10:32 | NUR ---
Call to On Site Nurse Spoke to Yaima On Site Nurse RN. Verifying medication orders. Holding Lasix, but will administer all other medications as ordered.
--- NOTE | 2019-07-04 10:52 | NUR ---
at bedside Dr. Whitney at bedside discussing plan of care with patient, patient's family, and this RN.
[2019-07-04] MEDS ORDERED: ACETYLCYSTEINE ORAL for CIN 20%(200MG/ML) 4ML PO ONE (11:00)
--- NOTE | 2019-07-04 12:25 | NUR ---
Re: Coat Padder Took patient to sugar laboratory assistant at this time. Family at bedside taken down as well.
[2019-07-04 12:30] VITALS: BP 142/62
[2019-07-04] MEDS ORDERED: IODIXANOL 320MG/ML 100ML BTL IV ONE (12:46)
[2019-07-04] MEDS ORDERED: LIDOCAINE 2%HCL (LOCAL ANESTH.) INJ 20ML MDV ONE (12:46)
[2019-07-04] MEDS ORDERED: fentaNYL CITRATE 100 MCG/2 ML VL ONE (13:22)
[2019-07-04] MEDS ORDERED: ANGIOMAX 250 MG VIAL IV ONE (13:22)
[2019-07-04] MEDS ORDERED: SODIUM CHL 0.9% 50 ML ONE (13:22)
[2019-07-04] MEDS ORDERED: VERAPAMIL 2.5MG/ML INJ 2ML VIAL IV ONE (13:22)
[2019-07-04] MEDS ORDERED: MIDAZOLAM HCL 1MG/1ML-2 ML VIAL ONE (13:22)
[2019-07-04] MEDS ORDERED: HEPARIN SODIUM (PORCINE) 5000 UNITS/ML 1ML VIAL ONE ×2 (13:31→13:54)
[2019-07-04] MEDS ORDERED: ADENOSINE 90 MG/30 ML INJ IV ONE (13:55)
--- NOTE | 2019-07-04 15:50 | NUR ---
Patient back on unit/bleeding to site Patient back on unit from bundle tier and labeler at this time. Vasc band has visible blood around site. Upon inspecting patient's groin incision. Dressing is completely saturated and leaking. Applied pressure to site for 15 minutes. Blood pressure: 125/69. Pulse 58. Oxygen is 98% on right hand where radial was accessed.
--- NOTE | 2019-07-04 16:05 | NUR ---
New Dressing to Groin/ Reinsert on vasc band New dressing applied to groin. Vasc band needed to have approx 3 mL of air reinserted due to visible bleeding.
[2019-07-04 17:00] VITALS: BP 122/54
--- NOTE | 2019-07-04 17:00 | NUR ---
Bleeding to Site Patient was laying flat. Per family, they gave her some water while lying flat. Patient's daughter is in hallway, "She's choking." Upon entering room, patient is repeatedly coughing. Daughter states, "she does this at home." Instructed patient and family not to drink anything laying down. When reassessing patient's groin, dressing is completely saturated and bleeding. Applied pressure for 15 minutes. Applied new dressing. No distress noted. Vitals Blood Pressure, 126/67, Pulse 61. No distress noted.
--- NOTE | 2019-07-04 20:00 | NUR ---
INCISION SITE INSPECTED BOTH RIGHT RADIAL AND RIGHT GROIN SITE INSPECTED. NO SIGNS OF INCREASED BLEEDING OR HEMATOMA NOTED. PATIENT EDUCATED ON NEED TO STAY IN BED AND NOT TO SIT UP WITHOUT ASSISTANCE. INFORMED PATIENT OF NECESSITY OF LAYING FLAT AT THIS TIME. PATIENT AND FAMILY VERBALIZED UNDERSTANDING. WILL CONTINUE TO MONITOR.
[2019-07-04] MEDS: ACETYLCYSTEINE ORAL for CIN 20%(200MG/ML) 4ML PO SCH (21:57)
[2019-07-04 23:03] VITALS: BP 135/67
[2019-07-05 03:19] VITALS: BP 135/67
[2019-07-05 05:34] VITALS: BP 122/58
[2019-07-05] MEDS: ALBUTEROL SULF 2.5 MG/0.5ML(0.5%) NEB SOLN NEB SCH ×2 (05:52→11:12)
[2019-07-05] MEDS: BUDESONIDE (INHALATION) 0.5 MG/2 ML NEB NEB SCH (05:52)
[2019-07-05] MEDS: IPRATROPIUM BROM 0.5 MG/2.5ML INH SOL NEB SCH ×2 (05:52→11:12)
[2019-07-05 06:23] LABS: Basophils # (auto) 0.1 uL; Basophils % (auto) 1.8 % (0.0-2.0); Eosinophils # (auto) 0.4 uL; Eosinophils % (auto) 5.8 % (0.0-7.0); Hematocrit 33.2 % (36.0-46.0); Hemoglobin 11.8 g/dL (12.2-16.2); Lymphocytes # (auto) 1.4 uL; Lymphocytes % (auto) 21.5 % (10.0-50.0); Mean Corpuscular Hemoglobin 30.5 pg (28.0-32.0); Mean Corpuscular Hgb Conc. 35.6 g/dL (32.0-36.0); Mean Corpuscular Volume 85.7 fL (80.0-100.0); Monocytes # (auto) 0.4 uL; Monocytes % (auto) 6.1 % (0.0-12.0); Neutrophils # (auto) 4.3 uL; Neutrophils % (auto) 64.8 % (37.0-80.0); Platelet Count (auto) 197 10^3/uL (140-450); Red Blood Cells 3.87 10^6/uL (4.0-5.20); Red Cell Distribution Width 13.8 % (11.8-14.3); White Blood Cell 6.6 10^3/uL (4.4-10.8)
[2019-07-05 06:39] LABS: Calcium 8.4 mg/dL (8.5-10.1); Potassium 3.7 mmol/L (3.5-5.1)
[2019-07-05 06:46] LABS: BUN/Creatinine Ratio 21.2
--- NOTE | 2019-07-05 07:19 | NUR ---
CLOSING NOTE PATIENT RESTING COMFORTABLY AND DRESSINGS CLEAN DRY AND INTACT. RIGHT GROIN DRESSING CLEAN DRY AND INTACT. SURROUNDING TISSUE SHOWING NO FURTHER BRUISING OR HEMATOMA. DAYSHICESILIA RN INFORMED.
--- NOTE | 2019-07-05 07:30 | NUR ---
Opening Shift Note Assuming care of patient at this time. Patient is awake and alert. Patient denies pain. Patient shows no signs or symptoms of distress or shortness of breath. Bed is locked and lowered with side rails up x2. Instructed patient on the plan of care for today and to call for assistance as needed. Dressing to right groin is dry and intact. No new bleeding noted to dressing. Surrounding tissue is ecchymotic. Radial dressing is clean, dry and intact. No bleeding noted to incision or surrounding areas. Call light within reach. Will continue to round hourly and as needed.
[2019-07-05] MEDS: ACCU-CHEK COMFORT CURVE STRIP VI SCH ×3 (07:56→17:00)
[2019-07-05] MEDS: InsuLIN REG 1unit/0.01ml Soln (100units/ml) SC SCH ×3 (07:56→17:00)
[2019-07-05 08:30] VITALS: BP 152/63
[2019-07-05] MEDS: CLOPIDOGREL BISULFATE 75 MG TAB PO SCH (11:14)
[2019-07-05] MEDS: FAMOTIDINE 20 MG TAB PO SCH (11:15)
[2019-07-05] MEDS: CARVEDILOL 12.5 MG TAB PO SCH (11:16)
[2019-07-05] MEDS: FUROSEMIDE 20 MG/2 ML VIAL IV SCH (11:16)
[2019-07-05] MEDS: ATORVASTATIN 20 MG TAB PO SCH (11:17)
[2019-07-05] MEDS: ASPirin-EC 81 mg tab PO SCH (11:17)
[2019-07-05] MEDS: ACETYLCYSTEINE ORAL for CIN 20%(200MG/ML) 4ML PO SCH (11:45)
[2019-07-05 12:30] VITALS: BP 135/57
--- NOTE | 2019-07-05 14:20 | NUR ---
Estimated needs based on AJBW 50 kg-wt maintenance, geriatric needs [id number] kcal (25-30 kcal/kg) 50-60 g protein (1.0-1.2 g/kg) Addendum: 07/05/19 at [address] Amended: Links added.
--- NOTE | 2019-07-05 16:55 | NUR ---
Discharge Discharge instructions given as ordered. Encourage to follow up with PMD as instructed. All questions and concerns addressed. Patient verbalized understanding. Home medications held in Pharmacy returned to patient, and needed vaccines given. IV removed with catheter intact, pressure dressing applied. Telemetry unit returned to ICU. Patient taken to vehicle via wheelchair with all personal belongings, accompanied by staff and family member. No distress noted at time of departure.
== END 2019-07-05 17:00 | disposition home or self-care (01) | DRG 286 ==
LOC: ER 11:47 → TELE 11:48 → TELE-WESTW 17:52
PROVIDERS: ADMIT Nurse Practitioner Acute Care; ATTEND Internal Medicine
PROC: 4A023N7 Measurement of Cardiac Sampling and Pressure, Left Heart, Percutaneous Approach (ICD-10-PCS; principal; 2019-07-04)
PROC: B2131ZZ Fluoroscopy of Multiple Coronary Artery Bypass Grafts using Low Osmolar Contrast (ICD-10-PCS; 2019-07-04)
PROC: B2181ZZ Fluoroscopy of Left Internal Mammary Bypass Graft using Low Osmolar Contrast (ICD-10-PCS; 2019-07-04)
PROC: B2151ZZ Fluoroscopy of Left Heart using Low Osmolar Contrast (ICD-10-PCS; 2019-07-04)
PROC: 4A033BC Measurement of Arterial Pressure, Coronary, Percutaneous Approach (ICD-10-PCS; 2019-07-04)
PROC: B2111ZZ Fluoroscopy of Multiple Coronary Arteries using Low Osmolar Contrast (ICD-10-PCS; 2019-07-04)
DX: I13.0 Hypertensive heart and chronic kidney disease with heart failure and stage 1 through stage 4 chronic kidney disease, or unspecified chronic kidney disease (principal); J96.00 Acute respiratory failure, unspecified whether with hypoxia or hypercapnia; I50.43 Acute on chronic combined systolic (congestive) and diastolic (congestive) heart failure; J44.1 Chronic obstructive pulmonary disease with (acute) exacerbation; N18.3 Chronic kidney disease, stage 3 (moderate); E11.22 Type 2 diabetes mellitus with diabetic chronic kidney disease; I25.10 Atherosclerotic heart disease of native coronary artery without angina pectoris; E11.21 Type 2 diabetes mellitus with diabetic nephropathy; E78.5 Hyperlipidemia, unspecified; E66.9 Obesity, unspecified; Z68.35 Body mass index [BMI] 35.0-35.9, adult; Z88.1 Allergy status to other antibiotic agents; Z79.4 Long term (current) use of insulin; Z95.1 Presence of aortocoronary bypass graft; Z95.5 Presence of coronary angioplasty implant and graft; Z88.5 Allergy status to narcotic agent; Z88.8 Allergy status to other drugs, medicaments and biological substances; Z72.0 Tobacco use; Z79.02 Long term (current) use of antithrombotics/antiplatelets; Z79.899 Other long term (current) drug therapy; Z82.3 Family history of stroke; Z82.49 Family history of ischemic heart disease and other diseases of the circulatory system; Z86.73 Personal history of transient ischemic attack (TIA), and cerebral infarction without residual deficits; Z90.710 Acquired absence of both cervix and uterus; Z85.43 Personal history of malignant neoplasm of ovary
CPT/HCPCS: 36415; 71045; 76705; 80048; 80053; 81001; 82962; 83036; 83605; 83880; 84443; 84484; 85025; 85610; 85730; 86141; 86850; 86870; 86900; 86901; 87040; 93005; 93306; 93459; 93571; 94640; 96365; G0378; J0153; J0696; J1815; J2250; Q9967

== ENCOUNTER → 2020-11-28 | Outpatient (CLI) | payer MEDICARE, MEDICAID ==
[~2020-11-28] MED LIST changes: +ALBU108A14 IN; +AMLO-496 PO; -AMLO10TA13 PO; +CLOP75TA70 PO; -HCTZ25T PO; +HYDR25TA5 PO; +LEVEMIR SC; -METF-370 PO; +RANO1000 PO
[2020-11-28 08:56] LABS: Albumin 3.4 g/dL (3.4-5.0); Calcium 8.7 mg/dL (8.5-10.1); Potassium 4.9 mmol/L (3.5-5.1)
[2020-11-28 09:02] LABS: BUN/Creatinine Ratio 22.6; Bilirubin, Total 0.4 mg/dL (0.2-1.0)
[2020-11-28 10:34] LABS: Basophils # (auto) 0 10 ^3/uL (0-0.2); Basophils % (auto) 0.7 % (0.0-2.0); Eosinophils # (auto) 0.3 10 ^3/uL (0-0.8); Eosinophils % (auto) 4.6 % (0.0-7.0); Hematocrit 36.6 % (36.0-46.0); Hemoglobin 12.2 g/dL (12.2-16.2); Lymphocytes # (auto) 1.3 10 ^3/uL (0.4-5.4); Lymphocytes % (auto) 19.3 % (10.0-50.0); Mean Corpuscular Hemoglobin 30.6 pg (28.0-32.0); Mean Corpuscular Hgb Conc. 33.4 g/dL (32.0-36.0); Mean Corpuscular Volume 91.5 fL (80.0-100.0); Monocytes # (auto) 0.4 10 ^3/uL (0-1.3); Monocytes % (auto) 6.4 % (0.0-12.0); Neutrophils # (auto) 4.6 10 ^3/uL (1.6-8.6); Platelet Count (auto) 233 10^3/uL (140-450); White Blood Cell 6.7 10^3/uL (4.4-10.8)
== END | disposition home or self-care (01) ==
LOC: LAB 08:06
PROVIDERS: ATTEND Physician Assistant
DX: I13.0 Hypertensive heart and chronic kidney disease with heart failure and stage 1 through stage 4 chronic kidney disease, or unspecified chronic kidney disease (principal); E11.22 Type 2 diabetes mellitus with diabetic chronic kidney disease; N18.30 Chronic kidney disease, stage 3 unspecified; I50.43 Acute on chronic combined systolic (congestive) and diastolic (congestive) heart failure; E11.21 Type 2 diabetes mellitus with diabetic nephropathy; E11.29 Type 2 diabetes mellitus with other diabetic kidney complication; E78.5 Hyperlipidemia, unspecified
CPT/HCPCS: 36415; 80053; 80061; 82043; 83036; 85025

== ENCOUNTER → 2021-04-23 | Outpatient (CLI) | payer MEDICARE, MEDICAID ==
[2021-04-23 10:57] LABS: Basophils # (auto) 0.1 10 ^3/uL (0-0.2); Basophils % (auto) 0.9 % (0.0-2.0); Eosinophils # (auto) 0.3 10 ^3/uL (0-0.8); Eosinophils % (auto) 4.6 % (0.0-7.0); Hemoglobin 12.5 g/dL (12.2-16.2); Lymphocytes # (auto) 1.6 10 ^3/uL (0.4-5.4); Lymphocytes % (auto) 24.9 % (10.0-50.0); Mean Corpuscular Hemoglobin 30.3 pg (28.0-32.0); Mean Corpuscular Hgb Conc. 33.7 g/dL (32.0-36.0); Mean Corpuscular Volume 89.9 fL (80.0-100.0); Monocytes # (auto) 0.5 10 ^3/uL (0-1.3); Monocytes % (auto) 7.2 % (0.0-12.0); Neutrophils # (auto) 4.1 10 ^3/uL (1.6-8.6); Neutrophils % (auto) 62.4 % (37.0-80.0); Nucleated Red Blood Cells % 0.1 %; Red Blood Cells 4.11 10^6/uL (4.0-5.20); Red Cell Distribution Width 14.2 % (11.8-14.3); White Blood Cell 6.5 10^3/uL (4.4-10.8)
[2021-04-23 11:42] LABS: Potassium 4.5 mmol/L (3.5-5.1)
[2021-04-23 11:48] LABS: Albumin 3.3 g/dL (3.4-5.0); BUN/Creatinine Ratio 18.5; Bilirubin, Total 0.4 mg/dL (0.2-1.0); Calcium 8.7 mg/dL (8.5-10.1); Total Protein 6.9 g/dL (6.4-8.2)
== END | disposition home or self-care (01) ==
LOC: LAB 10:28
PROVIDERS: ATTEND Nurse Practitioner Family
DX: E11.21 Type 2 diabetes mellitus with diabetic nephropathy (principal); I10 Essential (primary) hypertension
CPT/HCPCS: 36415; 80053; 82043; 83036; 85025

== ENCOUNTER → 2022-01-21 | Outpatient (CLI) | payer MEDICARE, MEDICAID ==
[~2022-01-21] MED LIST changes: -ASPI-231 PO; +ASPI1TAB20 PO
[2022-01-21 10:08] LABS: Hematocrit 29.1 % (36.0-46.0); Hemoglobin 9.9 g/dL (12.2-16.2); Mean Corpuscular Hemoglobin 30.2 pg (28.0-32.0); Mean Corpuscular Hgb Conc. 34.1 g/dL (32.0-36.0); Mean Corpuscular Volume 88.7 fL (80.0-100.0); Red Blood Cells 3.28 10^6/uL (4.0-5.20); Red Cell Distribution Width 15.9 % (11.8-14.3); White Blood Cell 4.8 10^3/uL (4.4-10.8)
[2022-01-21 10:13] LABS: Band Neutrophils % (manual) 0; Basophils % (manual) 0 (0.0-2.0); Blast Cells 0; Eosinophils % (manual) 0 (0-7); Metamyelocytes % 0; Myelocytes % 0; Promyelocytes % 0; Reactive Lymphocytes 0
[2022-01-21 10:41] LABS: Albumin 2.6 g/dL (3.4-5.0); Calcium 7.9 mg/dL (8.5-10.1)
[2022-01-21 10:44] LABS: BUN/Creatinine Ratio 25.4; Bilirubin, Total 0.4 mg/dL (0.2-1.0); Potassium 4.4 mmol/L (3.5-5.1); Total Protein 5.5 g/dL (6.4-8.2)
[2022-01-21 10:53] LABS: Lymphocytes % (manual) 13 (10.0-50.0); Monocytes % (manual) 16 (0-12)
== END | disposition home or self-care (01) ==
LOC: LAB 09:55
DX: I50.9 Heart failure, unspecified (principal)
CPT/HCPCS: 36415; 80053; 83880; 85007; 85027